=== PATIENT | male | born 1960 | race Caucasian/White ===

== ENCOUNTER → 2019-04-17 16:02 | Outpatient (CLI) | payer OTHER, SELFPAY ==
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
== END ==
PROVIDERS: PCP Internal Medicine; Visit Provider Internal Medicine
DX: M54.2 Cervicalgia (principal); M54.6 Pain in thoracic spine; V89.2XXA Person injured in unspecified motor-vehicle accident, traffic, initial encounter
CPT/HCPCS: 72050; 72072

== ENCOUNTER → 2019-07-09 15:55 | Outpatient (CLI) | payer OTHER, SELFPAY ==
--- NOTE | 2019-07-09 16:07 | ECG_ITS ---
APPROVED REPORT Exam: Resting ECG HR:65 bpm ECG Measurements Heart Rate 65 AXES VT 190 P 0 QRSd 102 QRS 12 QT 394 T 2 QTc 409 <Conclusion> Normal sinus rhythm Normal ECG Electronically signed by : Sherwin Crews, 07/09/2019 16:29:08
== END ==
PROVIDERS: PCP Internal Medicine; Visit Provider Internal Medicine
DX: Z01.818 Encounter for other preprocedural examination (principal); I10 Essential (primary) hypertension
CPT/HCPCS: 93005

== ENCOUNTER 2019-11-05 09:30 | Outpatient (RCR) | payer OTHER, SELFPAY | END 2019-11-05 09:35 | disposition home or self-care (01) | LOC: PT 09:30 | PROVIDERS: Visit Provider Orthopaedic Surgery | DX: M54.12 Radiculopathy, cervical region (principal); M48.02 Spinal stenosis, cervical region | CPT/HCPCS: 97010; 97014; 97035; 97110; 97140; 97163; 97164; G0283 ==

== ENCOUNTER → 2021-02-27 12:57 | Outpatient (CLI) | payer BC, SELFPAY ==
[2021-02-27 14:22] LABS: Basophils # 0.1 K/mm3 (0-0.2); Eosinophils # 0.3 K/mm3 (0.0-0.4); Eosinophils % 5.5 % (0.1-12.0); Hematocrit 42.3 % (42.0-52.0); Hemoglobin 13.6 g/dL (14.1-18.0); Lymphocytes # 1.6 K/mm3 (0.7-4.5); Lymphocytes % 26.5 % (10-50); Mean Corpuscular Hemoglobin 28.2 pg (27.0-31.2); Mean Corpuscular Volume 88.1 fl (80-94); Mean Platelet Volume 7.7 fl (7.4-10.4); Monocytes # 0.7 K/mm3 (0.1-1.0); Monocytes % 11.7 % (1.7-9.3); Neutrophils # 3.4 K/mm3 (1.8-7.8); Neutrophils % 55.2 % (37.0-80.0); Platelet Count 315 K/mm3 (142-424); Red Cell Distribution Width 13.3 % (11.5-17.5); White Blood Count 6.2 K/mm3 (4.8-10.8)
[2021-02-27 14:23] LABS: Hemoglobin A1C 7.9 % (4.0-6.0)
[2021-02-27 17:12] LABS: Alanine Aminotransferase 33 U/L (12-78); Albumin Level 4.1 g/dl (3.5-5.0); Albumin/Globulin Ratio 1.6 (1.1-1.8); Alkaline Phosphatase 51 U/L (38-126); Anion Gap 13.1 mEq/L (5-15); Aspartate Amino Transferase 36 U/L (17-59); Bilirubin,Total 0.6 mg/dl (0.2-1.3); Blood Urea Nitrogen 19 mg/dl (9-20); Calcium 9.7 mg/dl (8.4-10.2); Carbon Dioxide 23 mmol/L (22.0-30.0); Chloride 106 mmol/L (98-107); Chol/HDL Ratio 4.2 (1-3.5); Cholesterol 130 mg/dl (140-200); Estimated Glomerular Filt Rate 86 ml/min (>60); GFR (African American) 104 ML/MIN (>60); Globulin 2.6 g/dL (1.3-3.2); Glucose 173 mg/dl (74-100); HDL Cholesterol 31 mg/dl (40-60); Potassium 5.1 mmoL/L (3.5-5.1); Sodium 137 mmol/L (136-145); Total Protein,Serum 6.7 g/dl (6.3-8.2); Triglycerides 249 mg/dl (30-150); VLDL Cholesterol 50 mg/dL (0-40)
[2021-02-27 17:23] LABS: Direct LDL Cholesterol 30.07 mg/dL (100-129)
[2021-02-27 17:42] LABS: Prostate Specific Ag, Diagnost 0.997 ng/ml (0.0-4.0)
== END ==
PROVIDERS: Visit Provider Internal Medicine
DX: E11.9 Type 2 diabetes mellitus without complications (principal); I10 Essential (primary) hypertension; K76.0 Fatty (change of) liver, not elsewhere classified; E78.5 Hyperlipidemia, unspecified; M15.0 Primary generalized (osteo)arthritis; N40.1 Benign prostatic hyperplasia with lower urinary tract symptoms
CPT/HCPCS: 36415; 80053; 80061; 83036; 84153; 85025

== ENCOUNTER → 2021-07-01 06:14 | Outpatient (CLI) | payer BC, SELFPAY ==
--- NOTE | 2021-07-01 06:16 | CA_ITS ---
APPROVED REPORT Exam: Exercise Treadmill Technologist: Shira Israel Ht: 5 ft 9 in Wt: 281 lbs BSA: 2.39 m2 HR: 60 bpm BP: 124/84 mmHg Indications: Chest pain Medical History Medications: Aspirin,,,,, Metformin,,,,, Vitamin C,,,,, Vitamin D3,,,,, Losartan,,,,, TAMSULOSIN,,,,, Janumet,,,,, Celecoxib,,,,, Levocetirizine,,,,, PEPcid,,,,, LovaZA,,,,, Metamucil,,,,, Stress Test Details Test: Brandan HR Resting HR: 64 bpm Max Heart Rate (APMHR): 159 bpm Max HR Achieved: 127 bpm Target HR (85% APMHR): 135 bpm % of APMHR: 79 Recovery HR: 68 bpm BP Resting BP: 124.0/84.0 mmHg Max BP: 158.0/80.0 mmHg Recovery BP: 114.0/75.0 mmHg ECG Resting ECG: Normal sinus rhythm, rightward axis, ST-T abnormalities in leads III, aVF Clinical Exercise duration: 07:30 min Highest Stage Achieved: Exercise capacity: 10.1 METs Stress ECG Conclusion Patient exercised 7:30 on Brandan Protocol, stopping due to shortness of air. Symptoms: No chest pain. Arrhythmias/Ectopy: None ST-T Changes: Exaggeration of baseline ST-T abnormalities in leads III and aVF. Approximately 1mm of horizontal ST depression in lead II. Conclusion: Non-diagnostic EKG stress. < 85% of PM heart rate achieved. Myoview images reported separately. Test Summary . Standing . . . . . . . Myoview Injected . Stop exercise at 07:30 . . . . . . Electronically signed by : Marcin Clements MD 07/02/2021 11:20:53
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
--- NOTE | 2021-07-01 06:16 | CA_ITS ---
APPROVED REPORT EXAM: Comprehensive 2D, Doppler, and color-flow Echocardiogram Product Scientist: Vianney Hernandez, RT(R) Ht: 5 ft 9 in Wt: 281lbs BSA: 2.39 BP: 132/84 mmHg Indications: CP, HTN, DM, SOB, GERD, recent COVID Echo Enhancing Agent Indication: Endocardial border delineation Agent(s) / Amount(s) Used: Definity 2 cc 2D Dimensions LVOT 2.20 cm (M/F) 1.5-2.5 M-Mode Dimensions RVDd 2.49 cm (0.9-2.6) LA Diam 3.49 cm (1.9-4.0) LVDd 5.56 cm (3.5-5.7) Ao Diam 3.32 cm (2.0-3.7) LVDs 4.00 cm (3.5-5.7) IVSd 0.80 cm (0.6-1.1) PWd 1.05 cm (0.6-1.1) EF (Teich) 53.70% FS 28.10% EDV (Teich) 151.20 mL ESV (Teich) 70.00 mL LV Diastology E Decel Time 257.00 (160-240 msec) E/A Ratio 0.8 MED E' 5.70 (< 7 cm/sec) E'/MED E' Ratio 12.88 (>14) LAT E' 7.10 (<10 cm/sec) E/LAT E' Ratio 10.34 (>14) Mitral Valve MV E Max Ramiro. 73.00 (40-130 cm/s) MV A Velocity 89.00 (40-130 cm/s) E/A Ratio 0.83 MV Decel. Time 257.00 (160-240 ms) MV PHT 75.00 ms Left Ventricle Left atrium is mildly enlarged, left ventricle is normal size, mild concentric left ventricular hypertrophy, visually estimated ejection fraction 55% with no regional wall motion abnormality, grade 1 diastolic dysfunction seen without tissue Doppler evidence of raise left atrial pressure, Definity contrast was utilized to delineate the endocardial surfaces, there is no left ventricular thrombus seen. Right Ventricle Right atrium and right ventricle are normal size and contractility. Aortic Valve Aortic valve is minimally thickened and fibrosed, there is no aortic stenosis or aortic insufficiency. Mitral Valve Mitral valve grossly normal, there is trace mitral regurgitation. Tricuspid Valve Tricuspid grossly normal, there is trace tricuspid regurgitation, tricuspid regurgitation jet velocity is inadequate for calculation of the right ventricular systolic pressure. Pulmonic Valve Pulmonic valve is poorly visualized. Great Vessels Aortic root is normal size. Pericardium No significant pericardial effusion noted. Conclusion 1. Mildly enlarged left atrium, normal left ventricular size, mild concentric left ventricular hypertrophy, visually estimated ejection fraction 55% with no regional wall motion abnormality, grade 1 diastolic dysfunction seen without tissue Doppler evidence of raise left atrial pressure. 2. Trace mitral and tricuspid regurgitation. 3. No significant pericardial effusion noted. Electronically signed by : Marcin Clements MD 07/02/2021 15:25:26
== END ==
PROVIDERS: PCP Internal Medicine; Visit Provider Nurse Practitioner Family
DX: R07.89 Other chest pain (principal); R06.00 Dyspnea, unspecified; R94.31 Abnormal electrocardiogram [ECG] [EKG]; E13.69 Other specified diabetes mellitus with other specified complication; I10 Essential (primary) hypertension; K21.9 Gastro-esophageal reflux disease without esophagitis; Z79.84 Long term (current) use of oral hypoglycemic drugs
CPT/HCPCS: 78452; 93017; 93306; A9502; Q9957

== ENCOUNTER → 2021-07-07 11:32 | Outpatient (CLI) | payer BC, SELFPAY ==
--- NOTE | 2021-07-07 11:36 | XR_ITS ---
PROCEDURE: XR CHEST 2V CLINICAL HISTORY: dyspnea COMPARISON: No exams were available for comparison FINDINGS: The cardiomediastinal silhouette and pulmonary vascularity are within normal limits. The lungs are clear without infiltrates, suspicious nodules, or pleural effusions. Calcified granuloma right midlung, lingula, and left lower lobe. Degenerative changes thoracic spine. Prior anterior cervical disc fusion. IMPRESSION: No acute findings. Dictated by: Ministerio Saleh MD 07/07/2021 11:47 Ministerio Saleh MD in [place] 07/07/2021 11:47
== END ==
PROVIDERS: PCP Internal Medicine; Visit Provider Physician Assistant
DX: R07.89 Other chest pain (principal); R06.00 Dyspnea, unspecified
CPT/HCPCS: 71046

== ENCOUNTER → 2021-07-15 13:56 | Outpatient (CLI) | payer BC, SELFPAY ==
[2021-07-15 16:01] LABS: Blood Urea Nitrogen 20 mg/dl (9-20); Estimated Glomerular Filt Rate 115 ml/min (>60); GFR (African American) 139 ML/MIN (>60)
== END ==
PROVIDERS: Visit Provider Internal Medicine
DX: Z01.812 Encounter for preprocedural laboratory examination (principal)
CPT/HCPCS: 36415; 82565; 84520

== ENCOUNTER → 2021-07-16 12:53 | Outpatient (CLI) | payer BC, SELFPAY ==
--- NOTE | 2021-07-16 12:54 | CT_ITS ---
PROCEDURE: CT HIGH RESOLUTION CHEST CLINICAL HISTORY: E11.69 - Type 2 diabetes mellitus with other specified co... Pulmonary scarring, Covid19, dyspnea COMPARISON: CR XR CHEST 2V from 07/07/2021 TECHNIQUE: Axial images obtained with sagittal and coronal reformats. All CT scans at the facility use one or more dose reduction, viz: automated exposure control, ma/kV adjustment per patient size (including targeted exams where dose is matched to indication, i.e. head), or iterative reconstruction technique. FINDINGS: There is bilateral gynecomastia. A subcutaneous nodules present along the medial aspect of the right breast at 10 mm and may be due to a sebaceous cyst. Correlation with physical exam suggested. No mediastinal or hilar mass or adenopathy. There is evidence of old granulomatous disease with a calcified granuloma in the right upper lobe posteriorly. There is a 3-4 mm noncalcified nodule in the right middle lobe region nonspecific too small to categorize the flat like in nature benign-appearing a. Stability may be confirmed with annual follow-up. No suspicious nodules, consolidation, or effusions evident. No pulmonary fibrosis or suspected areas of scarring. High-resolution images are obtained showing no evidence pulmonary fibrosis. The interstitium has an unremarkable appearance. No ground-glass opacities Degenerative changes are present in the thoracic spine. Stone is present in the gallbladder at 10 mm. IMPRESSION: 1. No acute finding. No evidence of pulmonary fibrosis or ground-glass opacities or interstitial thickening. 2. Old granulomatous disease. 4 mm noncalcified nodule right middle lobe nonspecific. Annual follow-up may confirm stability. 3. Cholelithiasis 4. Gynecomastia. 10 mm subcutaneous nodule right breast medially possibly due to a sebaceous cyst Dictated by: Ministerio Saleh MD 07/20/2021 13:20 Ministerio Saleh MD in [place] 07/20/2021 13:20
== END ==
PROVIDERS: PCP Internal Medicine; Visit Provider Physician Assistant
DX: R06.00 Dyspnea, unspecified (principal); R07.89 Other chest pain; R94.31 Abnormal electrocardiogram [ECG] [EKG]; E11.69 Type 2 diabetes mellitus with other specified complication; I10 Essential (primary) hypertension; K21.9 Gastro-esophageal reflux disease without esophagitis; Z86.16 Personal history of COVID-19; Z79.84 Long term (current) use of oral hypoglycemic drugs
CPT/HCPCS: 71250

== ENCOUNTER → 2021-09-17 10:22 | Outpatient (CLI) | payer BC, SELFPAY ==
[2021-09-17 10:46] LABS: Basophils # 0.1 K/mm3 (0-0.2); Basophils % 1.4 % (0.1-2.0); Eosinophils # 0.4 K/mm3 (0.0-0.4); Eosinophils % 6.7 % (0.1-12.0); Hematocrit 44.7 % (42.0-52.0); Hemoglobin 14.7 g/dL (14.1-18.0); Lymphocytes # 1.5 K/mm3 (0.7-4.5); Mean Corpuscular HGB Conc 32.9 g/dL (31.8-35.4); Mean Corpuscular Hemoglobin 29.4 pg (27.0-31.2); Mean Corpuscular Volume 89.2 fl (80-94); Monocytes # 0.4 K/mm3 (0.1-1.0); Monocytes % 7.2 % (1.7-9.3); Neutrophils # 3.3 K/mm3 (1.8-7.8); Neutrophils % 57.7 % (37.0-80.0); Platelet Count 302 K/mm3 (142-424); Red Blood Count 5.01 M/mm3 (4.60-6.20); Red Cell Distribution Width 13.4 % (11.5-17.5); White Blood Count 5.7 K/mm3 (4.8-10.8)
[2021-09-17 11:29] LABS: Chloride 104 mmol/L (98-107); Potassium 4.6 mmoL/L (3.5-5.1); Sodium 140 mmol/L (136-145)
[2021-09-17 11:31] LABS: Alanine Aminotransferase 33 U/L (12-78); Anion Gap 10.6 mEq/L (5-15); Aspartate Amino Transferase 27 U/L (17-59); Blood Urea Nitrogen 18 mg/dl (9-20); Carbon Dioxide 30 mmol/L (22.0-30.0); Estimated Glomerular Filt Rate 98 ml/min (>60); GFR (African American) 119 ML/MIN (>60)
[2021-09-17 11:32] LABS: Albumin Level 4.1 g/dl (3.5-5.0); Albumin/Globulin Ratio 1.7 (1.1-1.8); Alkaline Phosphatase 52 U/L (38-126); Bilirubin,Total 0.3 mg/dl (0.2-1.3); Calcium 9.3 mg/dl (8.4-10.2); Chol/HDL Ratio 2.8 (1-3.5); Cholesterol 110 mg/dl (140-200); Globulin 2.4 g/dL (1.3-3.2); Glucose 162 mg/dl (74-100); HDL Cholesterol 40 mg/dl (40-60); Total Protein,Serum 6.5 g/dl (6.3-8.2); Triglycerides 127 mg/dl (30-150); VLDL Cholesterol 25 mg/dL (0-40)
[2021-09-17 12:11] LABS: Direct LDL Cholesterol < 30.00 mg/dL (100-129); Microalbumin < 6.000 mg/L (0-16.7)
== END ==
PROVIDERS: Visit Provider Internal Medicine
DX: E11.9 Type 2 diabetes mellitus without complications (principal); I10 Essential (primary) hypertension; E78.5 Hyperlipidemia, unspecified; K76.0 Fatty (change of) liver, not elsewhere classified; M15.0 Primary generalized (osteo)arthritis; N40.1 Benign prostatic hyperplasia with lower urinary tract symptoms; Z79.84 Long term (current) use of oral hypoglycemic drugs
CPT/HCPCS: 36415; 80053; 80061; 82043; 85025

== ENCOUNTER → 2021-10-05 11:32 | Outpatient (CLI) | payer BC, SELFPAY ==
[2021-10-05 13:36] LABS: Prostate Specific Ag, Diagnost 0.904 ng/ml (0.0-4.0)
[2021-10-05 13:38] LABS: Hemoglobin A1C 7.4 % (4.0-6.0)
== END ==
PROVIDERS: Internal Medicine; Visit Provider Surgery
DX: E11.9 Type 2 diabetes mellitus without complications (principal); I10 Essential (primary) hypertension; E78.5 Hyperlipidemia, unspecified; K76.0 Fatty (change of) liver, not elsewhere classified; M15.0 Primary generalized (osteo)arthritis; N40.1 Benign prostatic hyperplasia with lower urinary tract symptoms; Z79.84 Long term (current) use of oral hypoglycemic drugs
CPT/HCPCS: 36415; 83036; 84153; C9803; U0003; U0005

== ENCOUNTER 2021-10-07 06:40 | Day surgery (SDC) | payer BC, SELFPAY ==
[2021-10-05 10:28] VITALS: BMI 41.3
[2021-10-07 06:56] VITALS: BP 130/80; PULSE 68; RESP 18; TEMP 36.9; O2SAT 96
[2021-10-07 07:25] VITALS: O2SAT 96
--- NOTE | 2021-10-07 07:52 | P.PCN_ITS ---
- Procedure: Date: 10/07/21 Patient Date of :: 1960 Procedure Performed:: Total colonoscopy to terminal ileum with polypectomy using biopsy forceps Indications:: 61-year-old male who underwent initial screening colonoscopy [address] Ceron. Presents for screening colonoscopy. Performing Provider:: Reinaldo Steinberg MD Referring Provider:: Sherwin Crews Sedation:: MAC sedation Procedure:: Patient was taken to endoscopy procedure room. He was positioned in lateral decubitus position. Adequate intravenous sedation was achieved with anesthesia titration of propofol. Variable stiffness Olympus colonoscope was inserted via the anus and advanced to the cecum. Colonic preparation was good. There was some particulate liquid stool which was irrigated and suctioned free allowing for adequate visualization. Ileocecal valve and appendiceal orifice were identified. Colonoscope was advanced into the terminal ileum which appeared gr ossly normal. Colonoscope was withdrawn through the colon with careful surveillance. There were some sigmoid diverticuli. In the distal sigmoid colon there is a small diminutive polyp removed in a piecemeal fashion using cold biopsy forceps. Retroflexion within the rectum revealed no evidence of any pathologic internal hemorrhoids. Colonoscope was withdrawn. Findings:: Diminutive distal sigmoid polyp Sigmoid diverticulosis Recommendations:: Follow-up colonoscopy pending the pathology. Likely 5 years Complications:: None immediately apparent Estimated blood obtained (mL): 1
[2021-10-07 07:55] VITALS: BP 112/68; PULSE 68; RESP 18; TEMP 37.1; O2SAT 92
[2021-10-07 08:05] VITALS: BP 110/66; PULSE 66; RESP 18; O2SAT 95
[2021-10-07 08:15] VITALS: BP 121/76; PULSE 65; RESP 16; O2SAT 95
--- NOTE | 2021-10-07 08:15 | HMH.ANESCL ---
[facility] Anesthesia Checklist - Structural Data Admitted From: Home Planned Operative Procedure/s: colonoscopy Consent for Planned Operative Procedure(s) Verified: Yes - Airway Assessment C-Spine Mobility Assessed: Yes TMJ Mobility Assessed: Yes Dentition: Good Dentition - Neurological Assessment Level of Consciousness: Awake, Alert, Appropriate - Anesthesia Plan Anesthesia Risk discussed: Yes Anesthesia Plan: Verified ASA Class: II Anesthesia Type: MAC [facility] History I have reviewed the patient's past medical history: Yes Medical History: Reports:: Diabetes Mellitus Type 2, Hypertension Denies:: Cancer, Diabetes Mellitus Type 1, Internal Pacemaker, MRSA, Seizures *Have you ever received a pneumonia vaccine?: No *Have you received a flu vaccine this season?: Yes Other Medical History: Reports: Arthritis Anesthesia experience/problems:: none Laterality Cases: Left: Arthroscopy Shoulder Other Surgeries: Yes: Hernia Repair. No: Pacemaker Amputation: No Fractures: Yes - *Social History Last grade of school completed: High school graduate Smoking Status: Former smoker #Yrs smoked (if former smoker): 15 Smoking End Date: 25 YRS Alcohol Intake: current Alcohol Intake Frequency:: a few times a week Substance Use Type: denies use *Occupational Status:: retired Housing: house Household Members: spouse *Travel in the last 8 weeks: None Family Hx:: Cancer, Diabetes, Heart Attack, Hyperlipidemia, Hypertension
[2021-10-07 08:25] VITALS: BP 136/82; PULSE 68; RESP 16; O2SAT 98
[2022-07-29 10:55] LABS: POC Glucose,Bedside 160 (70-110)
== END 2021-10-07 08:27 | disposition home or self-care (01) ==
LOC: OUTP 06:42
PROVIDERS: PCP Internal Medicine; Visit Provider Surgery
PROC: 0DJD8ZZ Inspection of Lower Intestinal Tract, Via Natural or Artificial Opening Endoscopic (ICD-10-PCS; CPT 45380; principal; 2021-10-07 07:30)
DX: Z12.11 Encounter for screening for malignant neoplasm of colon (principal); K63.5 Polyp of colon; K57.32 Diverticulitis of large intestine without perforation or abscess without bleeding; E11.9 Type 2 diabetes mellitus without complications; I10 Essential (primary) hypertension; Z83.3 Family history of diabetes mellitus; Z82.49 Family history of ischemic heart disease and other diseases of the circulatory system; Z80.9 Family history of malignant neoplasm, unspecified; Z79.82 Long term (current) use of aspirin; Z79.899 Other long term (current) drug therapy
CPT/HCPCS: 45380; 82962

== ENCOUNTER → 2022-03-09 12:47 | Outpatient (CLI) | payer MEDICARE, BC, SELFPAY ==
[2022-03-09 13:44] LABS: Hemoglobin A1C 8.4 % (4.0-6.0)
[2022-03-09 13:50] LABS: Alanine Aminotransferase 37 U/L (12-78); Albumin Level 3.7 g/dl (3.5-5.0); Albumin/Globulin Ratio 1.5 (1.1-1.8); Alkaline Phosphatase 65 U/L (38-126); Anion Gap 12.4 mEq/L (5-15); Aspartate Amino Transferase 26 U/L (17-59); Bilirubin,Total 0.3 mg/dl (0.2-1.3); Blood Urea Nitrogen 17 mg/dl (9-20); Calcium 9.2 mg/dl (8.4-10.2); Carbon Dioxide 26 mmol/L (22.0-30.0); Chloride 103 mmol/L (98-107); Chol/HDL Ratio 3.8 (1-3.5); Cholesterol 124 mg/dl (140-200); Estimated Glomerular Filt Rate 98 ml/min (>60); GFR (African American) 119 ML/MIN (>60); Globulin 2.4 g/dL (1.3-3.2); Glucose 205 mg/dl (74-100); HDL Cholesterol 33 mg/dl (40-60); Potassium 4.4 mmoL/L (3.5-5.1); Sodium 137 mmol/L (136-145); Total Protein,Serum 6.1 g/dl (6.3-8.2); Triglycerides 197 mg/dl (30-150); VLDL Cholesterol 39 mg/dL (0-40)
[2022-03-09 14:01] LABS: Direct LDL Cholesterol < 30.00 mg/dL (100-129)
[2022-03-09 14:20] LABS: Prostate Specific Ag Screen 0.8 ng/ml (0.0-4.0)
== END ==
PROVIDERS: PCP Internal Medicine; Visit Provider Internal Medicine
DX: E11.9 Type 2 diabetes mellitus without complications (principal); E78.5 Hyperlipidemia, unspecified; I10 Essential (primary) hypertension; Z12.5 Encounter for screening for malignant neoplasm of prostate; Z79.84 Long term (current) use of oral hypoglycemic drugs
CPT/HCPCS: 80053; 80061; 83036; G0103

== ENCOUNTER → 2022-09-13 13:53 | Outpatient (CLI) | payer MEDICARE, BC, SELFPAY ==
[2022-09-13 16:13] LABS: Basophils # 0.1 K/mm3 (0-0.2); Basophils % 1.4 % (0.1-2.0); Eosinophils # 0.3 K/mm3 (0.0-0.4); Eosinophils % 5.8 % (0.1-12.0); Hemoglobin 12.8 g/dL (14.1-18.0); Lymphocytes # 1.5 K/mm3 (0.7-4.5); Lymphocytes % 26.3 % (10-50); Mean Corpuscular HGB Conc 32.1 g/dL (31.8-35.4); Mean Corpuscular Hemoglobin 29.1 pg (27.0-31.2); Mean Corpuscular Volume 90.9 fl (80-94); Mean Platelet Volume 8.9 fl (7.4-10.4); Monocytes # 0.5 K/mm3 (0.1-1.0); Monocytes % 8.7 % (1.7-9.3); Neutrophils # 3.2 K/mm3 (1.8-7.8); Neutrophils % 57.8 % (37.0-80.0); Platelet Count 356 K/mm3 (142-424); Red Blood Count 4.41 M/mm3 (4.60-6.20); Red Cell Distribution Width 14.1 % (11.5-17.5); White Blood Count 5.5 K/mm3 (4.8-10.8)
[2022-09-13 16:23] LABS: Alanine Aminotransferase 28 U/L (12-78); Albumin Level 3.8 g/dl (3.5-5.0); Albumin/Globulin Ratio 1.6 (1.1-1.8); Alkaline Phosphatase 78 U/L (38-126); Anion Gap 13.7 mEq/L (5-15); Aspartate Amino Transferase 24 U/L (17-59); Bilirubin,Total 0.3 mg/dl (0.2-1.3); Blood Urea Nitrogen 22 mg/dl (9-20); Calcium 9.3 mg/dl (8.4-10.2); Carbon Dioxide 27 mmol/L (22.0-30.0); Chloride 103 mmol/L (98-107); Chol/HDL Ratio 2.9 (1-3.5); Cholesterol 100 mg/dl (140-200); Estimated Glomerular Filt Rate 86 ml/min (>60); GFR (African American) 103 ML/MIN (>60); Globulin 2.4 g/dL (1.3-3.2); Glucose 128 mg/dl (74-100); HDL Cholesterol 34 mg/dl (40-60); Potassium 4.7 mmoL/L (3.5-5.1); Sodium 139 mmol/L (136-145); Total Protein,Serum 6.2 g/dl (6.3-8.2); Triglycerides 119 mg/dl (30-150); VLDL Cholesterol 24 mg/dL (0-40)
[2022-09-13 16:40] LABS: Creatinine,Urine Random 146 mg/dL (Not Estab.)
[2022-09-13 16:42] LABS: Direct LDL Cholesterol < 30.00 mg/dL (100-129)
[2022-09-13 16:44] LABS: Microalbumin < 6.000 mg/L (0-16.7)
[2022-09-13 17:00] LABS: Hemoglobin A1C 6.5 % (4.0-6.0)
[2022-09-15 11:14] LABS: Iron 53 ug/dL (49-181)
[2022-09-15 11:23] LABS: Total Iron Binding Capacity 354 ug/dL (261-462)
== END ==
PROVIDERS: PCP Internal Medicine; Visit Provider Internal Medicine
DX: E11.9 Type 2 diabetes mellitus without complications (principal); D64.9 Anemia, unspecified; I10 Essential (primary) hypertension; E78.5 Hyperlipidemia, unspecified; K76.0 Fatty (change of) liver, not elsewhere classified; G47.33 Obstructive sleep apnea (adult) (pediatric); Z79.84 Long term (current) use of oral hypoglycemic drugs
CPT/HCPCS: 80053; 80061; 82043; 82570; 83036; 83540; 83550; 85025

== ENCOUNTER 2023-11-01 13:46 | Outpatient (CLI) | payer MEDICARE, BC, SELFPAY ==
[2023-11-01 15:24] LABS: Alanine Aminotransferase 22 U/L (12-78); Alkaline Phosphatase 67 U/L (38-126); Aspartate Amino Transferase 23 U/L (17-59); Bilirubin,Total 0.4 mg/dl (0.2-1.3); Blood Urea Nitrogen 19 mg/dl (9-20); Calcium 8.2 mg/dl (8.4-10.2); Carbon Dioxide 25 mmol/L (22.0-30.0); Chloride 107 mmol/L (98-107); Chol/HDL Ratio 3.2 (1-3.5); Cholesterol 108 mg/dl (140-200); Estimated Glomerular Filt Rate 85 ml/min (>60); GFR (African American) 103 ML/MIN (>60); Glucose 138 mg/dl (74-100); HDL Cholesterol 34 mg/dl (40-60); Triglycerides 85 mg/dl (30-150); VLDL Cholesterol 17 mg/dL (0-40)
[2023-11-01 15:35] LABS: Direct LDL Cholesterol 46.63 mg/dL (100-129)
[2023-11-01 15:53] LABS: Creatinine,Urine Random 185 mg/dL (Not Estab.)
[2023-11-01 16:22] LABS: Albumin Level 3.4 g/dl (3.5-5.0); Albumin/Globulin Ratio 1.4 (1.1-1.8); Anion Gap 6.7 mEq/L (5-15); Globulin 2.5 g/dL (1.3-3.2); Potassium 4.7 mmoL/L (3.5-5.1); Sodium 134 mmol/L (136-145); Total Protein,Serum 5.9 g/dl (6.3-8.2)
[2023-11-01 16:47] LABS: Hemoglobin A1C 7.1 % (4.0-6.0)
[2023-11-01 18:10] LABS: Microalbumin/Creatinine Ratio 4.4
== END 2023-11-01 23:59 ==
LOC: LAB.DROPOF 13:47
PROVIDERS: PCP Internal Medicine; Visit Provider Internal Medicine
DX: E11.9 Type 2 diabetes mellitus without complications (principal); Z12.5 Encounter for screening for malignant neoplasm of prostate; E78.5 Hyperlipidemia, unspecified; I10 Essential (primary) hypertension; K76.0 Fatty (change of) liver, not elsewhere classified; M15.0 Primary generalized (osteo)arthritis; E66.01 Morbid (severe) obesity due to excess calories; Z68.41 Body mass index [BMI] 40.0-44.9, adult; Z79.84 Long term (current) use of oral hypoglycemic drugs; Z87.891 Personal history of nicotine dependence
CPT/HCPCS: 80053; 80061; 82043; 82570; 83036; G0103

== ENCOUNTER 2024-03-09 15:12 | Outpatient (CLI) | payer MEDICARE, BC, SELFPAY ==
--- NOTE | 2024-03-09 15:19 | XR_ITS ---
FINAL REPORT CLINICAL HISTORY: Cough and shortness of breath COMPARISON: None FINDINGS: Two views of the chest were obtained. The heart size and pulmonary vascularity are within normal limits. The mediastinum is normal. No acute pulmonary abnormality is identified. There is no pneumothorax. Postoperative change is noted in the lower cervical spine. IMPRESSION: No active cardiopulmonary disease. Reviewed, Interpreted and Dictated by Reinaldo Peters III, MD Transcribed by Paulette Gilmore Authenticated and [facility]
== END 2024-03-09 23:59 | disposition home or self-care (01) ==
LOC: RAD 15:16
PROVIDERS: PCP Internal Medicine; Visit Provider Internal Medicine
DX: R06.02 Shortness of breath (principal); R05.9 Cough, unspecified
CPT/HCPCS: 71046

== ENCOUNTER 2024-05-29 18:08 | Outpatient (CLI) | payer MEDICARE, BC, SELFPAY ==
[2024-05-29 18:59] LABS: Basophils # 0.1 K/mm3 (0-0.2); Basophils % 1.4 % (0.1-2.0); Eosinophils # 0.5 K/mm3 (0.0-0.4); Eosinophils % 9.6 % (0.1-12.0); Hematocrit 40.9 % (42.0-52.0); Hemoglobin 12.7 g/dL (14.1-18.0); Lymphocytes # 1.5 K/mm3 (0.7-4.5); Mean Corpuscular Hemoglobin 25.5 pg (27.0-31.2); Mean Corpuscular Volume 82.4 fl (80-94); Mean Platelet Volume 8.4 fl (7.4-10.4); Monocytes # 0.4 K/mm3 (0.1-1.0); Monocytes % 8.2 % (1.7-9.3); Neutrophils # 2.6 K/mm3 (1.8-7.8); Neutrophils % 51.9 % (37.0-80.0); Platelet Count 313 K/mm3 (142-424); Red Blood Count 4.97 M/mm3 (4.60-6.20)
[2024-05-29 19:22] LABS: Alanine Aminotransferase 23 U/L (12-78); Albumin Level 3.6 g/dl (3.5-5.0); Albumin/Globulin Ratio 1.2 (1.1-1.8); Alkaline Phosphatase 71 U/L (38-126); Anion Gap 10.6 mEq/L (5-15); Aspartate Amino Transferase 22 U/L (17-59); Bilirubin,Total 0.3 mg/dl (0.2-1.3); Blood Urea Nitrogen 17 mg/dl (9-20); Calcium 9.3 mg/dl (8.4-10.2); Carbon Dioxide 25 mmol/L (22.0-30.0); Chloride 107 mmol/L (98-107); Chol/HDL Ratio 2.5 (1-3.5); Cholesterol 104 mg/dl (140-200); Estimated Glomerular Filt Rate 97 ml/min (>60); GFR (African American) 118 ML/MIN (>60); Globulin 3.1 g/dL (1.3-3.2); Glucose 107 mg/dl (74-100); HDL Cholesterol 41 mg/dl (40-60); Potassium 4.6 mmoL/L (3.5-5.1); Sodium 138 mmol/L (136-145); Total Protein,Serum 6.7 g/dl (6.3-8.2); Triglycerides 140 mg/dl (30-150); VLDL Cholesterol 28 mg/dL (0-40)
[2024-05-29 19:40] LABS: Direct LDL Cholesterol < 30.00 mg/dL (100-129)
[2024-05-29 21:16] LABS: Hemoglobin A1C 6.9 % (4.0-6.0)
[2024-05-30 15:16] LABS: Iron 41 ug/dL (49-181)
[2024-05-30 15:26] LABS: Total Iron Binding Capacity 394 ug/dL (261-462)
[2024-05-30 15:40] LABS: Vitamin B12 610 pg/mL (239-931)
== END 2024-05-29 23:59 | disposition home or self-care (01) ==
LOC: LAB.DROPOF 18:08
PROVIDERS: PCP Internal Medicine; Visit Provider Internal Medicine
DX: I10 Essential (primary) hypertension (principal); E11.69 Type 2 diabetes mellitus with other specified complication; E11.9 Type 2 diabetes mellitus without complications; E78.5 Hyperlipidemia, unspecified; D64.9 Anemia, unspecified; Z79.84 Long term (current) use of oral hypoglycemic drugs; Z87.891 Personal history of nicotine dependence
CPT/HCPCS: 80053; 80061; 82607; 83036; 83540; 83550; 85025

== ENCOUNTER 2024-06-12 19:01 | Outpatient (CLI) | payer MEDICARE, BC, SELFPAY ==
[2024-06-12 19:29] LABS: Occult Blood,Stool Negative (Negative)
== END 2024-06-12 23:59 | disposition home or self-care (01) ==
LOC: LAB.DROPOF 19:03
PROVIDERS: PCP Internal Medicine; Visit Provider Internal Medicine
DX: D50.9 Iron deficiency anemia, unspecified (principal)
CPT/HCPCS: 82272; G0328

== ENCOUNTER 2024-11-27 08:59 | Outpatient (CLI) | payer MEDICARE, BC, SELFPAY ==
[2024-11-27 16:26] LABS: Alanine Aminotransferase 25 U/L (12-78); Albumin Level 3.9 g/dl (3.5-5.0); Albumin/Globulin Ratio 1.2 (1.1-1.8); Alkaline Phosphatase 71 U/L (38-126); Anion Gap 13.7 mEq/L (5-15); Aspartate Amino Transferase 24 U/L (17-59); Bilirubin,Total 0.4 mg/dl (0.2-1.3); Blood Urea Nitrogen 19 mg/dl (9-20); Calcium 9.2 mg/dl (8.4-10.2); Carbon Dioxide 26 mmol/L (22.0-30.0); Chloride 103 mmol/L (98-107); Chol/HDL Ratio 3.1 (1-3.5); Cholesterol 117 mg/dl (140-200); Estimated Glomerular Filt Rate 85 ml/min (>60); GFR (African American) 103 ML/MIN (>60); Globulin 3.2 g/dL (1.3-3.2); Glucose 113 mg/dl (74-100); HDL Cholesterol 38 mg/dl (40-60); Potassium 4.7 mmoL/L (3.5-5.1); Sodium 138 mmol/L (136-145); Total Protein,Serum 7.1 g/dl (6.3-8.2); Triglycerides 134 mg/dl (30-150); VLDL Cholesterol 27 mg/dL (0-40)
[2024-11-27 16:35] LABS: Creatinine,Urine Random 97 mg/dL (Not Estab.); Hemoglobin A1C 6.6 % (4.0-6.0); Microalbumin < 6.000 mg/L (0-16.7)
[2024-11-27 16:37] LABS: Direct LDL Cholesterol 34.19 mg/dL (100-129)
[2024-11-27 16:58] LABS: Prostate Specific Ag Screen 0.9 ng/ml (0.0-4.0)
[2024-11-27 18:18] LABS: Iron 129 ug/dL (49-181)
[2024-11-27 18:29] LABS: Total Iron Binding Capacity 331 ug/dL (261-462)
== END 2024-11-27 23:59 | disposition home or self-care (01) ==
LOC: LAB.DROPOF 11-28 09:00
PROVIDERS: PCP Internal Medicine; Visit Provider Internal Medicine
DX: Z12.5 Encounter for screening for malignant neoplasm of prostate (principal); E11.9 Type 2 diabetes mellitus without complications; D50.9 Iron deficiency anemia, unspecified; Z86.0100 Personal history of colon polyps, unspecified; I10 Essential (primary) hypertension; E78.5 Hyperlipidemia, unspecified
CPT/HCPCS: 80053; 80061; 82043; 82570; 83036; 83540; 83550; G0103

== ENCOUNTER 2025-01-24 07:50 | Day surgery (SDC) | payer MEDICARE, BC, SELFPAY ==
[2025-01-22 16:03] VITALS: BMI 36.9
[2025-01-24 08:26] LABS: POC Glucose,Bedside 166 (70-110)
[2025-01-24 08:31] VITALS: BP 125/82; PULSE 83; RESP 16; TEMP 36.8; O2SAT 95
[2025-01-24] MEDS: LACTATED RINGERS 1000ML 1,000 ML 50 ML IV (08:42)
--- NOTE | 2025-01-24 09:23 | EXP.ANES.CKL ---
[facility] Disclaimer: The information contained in this section may have been updated after the patient was seen, as this information can be updated by other users. Medical History Left rotator cuff tear HTN (hypertension) Abnormal electrocardiography Gastroesophageal reflux disease Diabetes mellitus Dyspnea Chest pain Surgical History History of neck surgery Family History (Updated 01/24/25 @ 08:37 by Nidia August RN) Other Diabetes Heart disease Social History (Updated 01/24/25 @ 08:38 by Nidia August RN) Smoking Status: Former smoker second hand exposure: No alcohol intake: never substance use type: denies use current occupational status: retired Travel in the last 8 weeks: Inside the [place] household members: spouse housing: house caffeine: Yes Have you lived/traveled outside [place] in past 30 days?: No Contact w/someone who lives/traveled outside US past 30 days?: No Exposure to someone with infectious disease in past 14 days?: No Do you have a fever (greater than 100.4 F or 38 C)?: No Have you tested positive for COVID-19: No Exposed to someone with COVID-19 in past 14 days?: No Do you have a sore throat?: No Do you have a cough?: No Do you have any weakness?: No Are you experiencing any nausea/vomitting?: No Do you have any diarrhea?: No Are you experiencing any unusual bleeding?: No Do you have any muscle aches/pain?: No Do you have any abdominal pain?: No Are you experiencing loss of taste or smell?: No [facility] Anesthesia Checklist Patient Identification Patient Identification: Arm Band Structural Data Admitted From: Home Planned Operative Procedure/s: Colonoscopy Consent for Planned Operative Procedure(s) Verified: Yes Verified Documents: Surgical Consent and History and Physical NPO Status Verified Time NPO: 05:45 (finished prep) Additional verifications Anesthesia Reactions: No Airway Assessment Mallampati Score:: Class II C-Spine Mobility Assessed: Yes TMJ Mobility Assessed: Yes Dentition: Good Dentition Neurological Assessment Level of Consciousness: Awake, Alert and Appropriate Anesthesia Plan Anesthesia Risk discussed: Yes Anesthesia Plan: Verified ASA Class: III Anesthesia Type: MAC
[2025-01-24 09:48] VITALS: O2SAT 99
--- NOTE | 2025-01-24 09:49 | P.HP_ITS ---
History of Present Illness *Admission Date: 01/24/25 *Reason for visit:: Screening for colon cancer *History of present illness: Mr. Navas is a 64-year-old gentleman who is here for follow-up screening/surveillance colonoscopy. The examination is deemed medically necessary for screening colonoscopy. The patient has been seen, interviewed and examined prior to the procedure by both myself and the anesthesia provider. [facility] Disclaimer: The information contained in this section may have been updated after the patient was seen, as this information can be updated by other users. Medical History (Updated 01/24/25 @ 09:50 by Vinicius Hairston II, MD) Left rotator cuff tear HTN (hypertension) Abnormal electrocardiography Gastroesophageal reflux disease Diabetes mellitus Dyspnea Chest pain Surgical History History of neck surgery Family History (Updated 01/24/25 @ 08:37 by Nidia August RN) Other Diabetes Heart disease Social History (Updated 01/24/25 @ 08:38 by Nidia August RN) Smoking Status: Former smoker second hand exposure: No alcohol intake: never substance use type: denies use current occupational status: retired Travel in the last 8 weeks: Inside the [place] household members: spouse housing: house caffeine: Yes Have you lived/traveled outside US in past 30 days?: No Contact w/someone who lives/traveled outside [place] past 30 days?: No Exposure to someone with infectious disease in past 14 days?: No Do you have a fever (greater than 100.4 F or 38 C)?: No Have you tested positive for COVID-19: No Exposed to someone with COVID-19 in past 14 days?: No Do you have a sore throat?: No Do you have a cough?: No Do you have any weakness?: No Are you experiencing any nausea/vomitting?: No Do you have any diarrhea?: No Are you experiencing any unusual bleeding?: No Do you have any muscle aches/pain?: No Do you have any abdominal pain?: No Are you experiencing loss of taste or smell?: No Other Medical History Have you received the Flu Vaccine for this season: Yes Have you received the Pneumonia Vaccine: Yes Review of Systems Review of Systems Review of systems (narrative): Negative *Cardiovascular Comments: Negative *Gastrointestinal Comments: Negative *Genitourinary Comments: Negative *Musculoskeletal Comments: Negative *Neurologic Comments: Negative Meds Home Medications and Allergies Home Medications ?Medication ?Instructions ?Recorded ?Confirmed ?Type aspirin 81 mg tablet,delayed 81 mg PO DAILY heart healthy 06/16/21 01/24/25 History release (Adult Low Dose Aspirin) psyllium husk 3.4 gram/5.4 gram 1 tbsp PO DAILY bowels 06/16/21 01/24/25 History oral powder (Metamucil) vitamin B comp and C no.3 15 mg-10 1 cap PO DAILY Supplement 06/16/21 01/24/25 History mg-50 mg-5 mg-300 mg capsule (B Complex Plus Vitamin C) vitamin B complex-vitamin C-folic 400 mcg PO DAILY . 10/05/21 01/22/25 History acid 400 mcg tablet glucosamine sulfate dipotassium Cl 1 each PO DAILY supplement' 10/06/21 01/24/25 History 500 mg-chondroitin 400 mg capsule turmeric 400 mg capsule 500 mg PO DAILY Supplement 10/06/21 01/24/25 History famotidine 20 mg tablet (Pepcid) 20 mg PO BID Reflux/Acid reflux 05/29/24 01/24/25 Rx #180 tabs hydrocortisone 2.5 % topical cream 1 applic NC QID PRN hemorrhoids 05/29/24 01/24/25 Rx with perineal applicator #30 grams (Procto-Med HC) omega-3 acid ethyl esters 1 gram See Rx Instructions .Route 05/29/24 01/24/25 Rx capsule .COMPLEX #180 caps tamsulosin 0.4 mg capsule 0.4 mg PO DAILY #90 caps 05/29/24 01/24/25 Rx metformin 500 mg tablet 500 mg PO BIDWMEAL Diabetes #180 07/13/24 01/24/25 Rx tabs celecoxib 200 mg capsule See Rx Instructions .Route 10/10/24 01/24/25 Rx .COMPLEX #180 caps ezetimibe 10 mg tablet See Rx Instructions .Route 10/10/24 01/24/25 Rx .COMPLEX #90 tabs levocetirizine 5 mg tablet See Rx Instructions .Route 10/10/24 01/24/25 Rx .COMPLEX #90 tabs losartan 100 mg tablet See Rx Instructions .Route 10/10/24 01/24/25 Rx .COMPLEX #90 tabs semaglutide 14 mg tablet (Rybelsus) See Rx Instructions .Route 10/30/24 01/24/25 Rx .COMPLEX #90 tabs [id number] 140 gram-sod sulfate 9 500 ml PO .COMPLEX colonscopy #3 ea 12/03/24 12/03/24 Rx gram-NaCl 5.2gram-KCl-C oral pwdr packs (Plenvu) cholecalciferol (vitamin D3) 125 125 mcg PO DAILY Supplement 01/24/25 01/24/25 History mcg (5,000 unit) capsule cholecalciferol (vitamin D3) 50 50 mcg PO DAILY 01/24/25 01/24/25 History mcg (2,000 unit) tablet (Vitamin D3) cinnamon bark 500 mg capsule 1,000 mg PO DAILY 01/24/25 01/24/25 History (Cinnamon) magnesium 250 mg tablet 250 mg PO DAILY 01/24/25 01/24/25 History New Prescriptions to Start Prescriptions: Allergies Allergy/AdvReac Type Severity Reaction Status Date / Time Fish Containing Products Allergy Severe S-SWELLS-OR Verified 01/24/25 08:22 (From SEAFOOD (F/D)) AL/THROAT shellfish derived Allergy Severe Swelling Verified 01/24/25 08:22 of Tongue/Throat Exam Data for Last 24 hours Vital signs and Labs for Last 24 Hours: Temp Pulse Resp BP Pulse Ox O2 Del Method O2 Flow Rate 98.3 F 83 16 125/82 95 Nasal Cannula 5 01/24/25 08:31 01/24/25 08:31 01/24/25 08:31 01/24/25 08:31 01/24/25 08:31 01/24/25 09:48 01/24/25 09:48 Laboratory Results - last 24 hr 01/24/25 08:18: POC Glucose 166 H I & O for Last 24 hours: Intake & Output 01/21/25 01/22/25 01/23/25 01/24/25 23:59 23:59 23:59 23:59 Weight 250 lb *Routine HEENT Exam Head: Present normocephalic Eye: Present EOMI and PERRL ENT: Present mucous membranes moist *Routine Neck Exam Neck: Present supple *Routine Respiratory Exam Respiratory: Present CTA bilaterally *Routine Cardiovascular Exam Cardiovascular: Present RRR *Routine Abdominal Exam Abdominal: Present soft and normoactive bowel sounds; Absent tenderness *Routine Rectal Exam Rectal:: deferred *Routine Genitalia Exam Genitalia:: deferred *Routine Extremities Exam Extremities: Absent cyanosis, clubbing or edema *Routine Skin Exam Skin: Present warm; Absent rash *Routine Neurological Exam Neurological: Present alert and oriented X3 Assessment and Plan *Assessment and plan (1) Screening for colon cancer: Status: Acute Category: Medical Code(s): Z12.11 - Encounter for screening for malignant neoplasm of colon (2) History of colon polyps: Status: Chronic Category: Medical Code(s): Z86.0100 - Personal history of colon polyps, unspecified Plan A/P: 1. Screening for colon cancer/history of colon polyps is the preprocedural diagnosis. The patient will be anesthetized/sedated using MAC sedation. The patient has been seen and examined. Cardiac and lung assessment prior to the examination is stable. Proceed with planned screening colonoscopy
--- NOTE | 2025-01-24 09:51 | P.PCN_ITS ---
[facility] Procedure Note Date: 01/24/25 Time: 10:09 Procedure Note:: Colonoscopy Procedure Report: Colonoscopy with cold snare polypectomy and monopolar ablation/coagulation of internal hemorrhoids Endoscopist: Vinicius Hairston II, MD Referring physician: Sherwin Crews MD Date of Procedure: January 24, 2025 Equipment: Olympus 190 variable stiffness pediatric colonoscope Sedation: MAC sedation Indication: Mr. Navas is a 64-year-old gentleman who is here for screening/surveillance colonoscopy. He does state that his last colonoscopy was more than 10 years ago (Hernan Ceron MD) yet his records at [facility] show a colonoscopy in September 2021 (Reinaldo Steinberg MD) at which time a single hyperplastic polyp was removed. The patient does state that he also had a Cologuard within the last several years that was negative. He reports no abdominal pain, weight loss, change in bowel habits or family history of colon cancer. He does have occasional spotting of blood from internal hemorrhoids. He does have some mild chronic constipation (unchanged) and does take Metamucil daily. Procedure: Prior to the procedure, a history and physical exam was performed, and patient's medications and allergies were reviewed. The risks, benefits and alternatives of the sedation and procedure were discussed with the patient. All questions were answered and informed consent was obtained. The patient was brought to the procedure room. Patient identification and proposed procedure were verified by the physician and the nurse. The patient was placed in a left lateral decubitus position and the scope was passed under direct vision. Throughout the procedure, the patient's blood pressure, pulse, and oxygen saturations were monitored continuously. The colonoscopy was accomplished without difficulty. The patient tolerated the procedure well. Findings: On digital rectal examination there was normal rectal tone. There were no external hemorrhoids. The colonoscope was introduced through the anal canal to the rectum and advanced to the cecum. The ileocecal valve and appendiceal orifice were identified. The scope was advanced a short distance into the ileum which appeared grossly normal. The scope was then withdrawn into the colon. There was a single 7 mm polyp in the cecum removed via cold snare polypectomy. The remaining cecum, ascending and transverse colon and mucosa were grossly normal. There were scattered diverticuli throughout the descending and sigmoid colon (LEFT colon). The rectum itself was normal. Upon retroflexion within the rectum there were grade 2-3 internal hemorrhoids. The 3 columns of hemorrhoids were ablated/coagulated using monopolar ablation to destruction. The preparation was excellent throughout with Thornton Preparation Score of 9. The cecal time was 12 minutes. Impression: 1. Cecal polyp (7 mm) 2. Left-sided diverticulosis 3. Grade 2-3 internal hemorrhoids status post monopolar ablation/coagulation Plan: I will follow-up the polyp histology and recommend repeat surveillance colonoscopy again in 5 to 7 years based upon the pathology. I would encourage psyllium bulking fiber supplementation (Konsyl) on a long-term daily maintenance basis.
[2025-01-24 10:13] VITALS: BP 127/76; PULSE 79; RESP 16; TEMP 36.1; O2SAT 96
[2025-01-24 10:23] VITALS: BP 121/81; PULSE 72; RESP 16; O2SAT 97
[2025-01-24 10:33] VITALS: BP 116/78; PULSE 71; RESP 17; O2SAT 98
== END 2025-01-24 10:50 | disposition home or self-care (01) ==
PROVIDERS: PCP Internal Medicine; Visit Provider Internal Medicine Gastroenterology
PROC: 0DJD8ZZ Inspection of Lower Intestinal Tract, Via Natural or Artificial Opening Endoscopic (ICD-10-PCS; CPT 45378; principal; 2025-01-24 09:30)
DX: K63.5 Polyp of colon (principal); K57.30 Diverticulosis of large intestine without perforation or abscess without bleeding; K64.9 Unspecified hemorrhoids; Z12.11 Encounter for screening for malignant neoplasm of colon; Z86.0100 Personal history of colon polyps, unspecified; K59.00 Constipation, unspecified; E11.9 Type 2 diabetes mellitus without complications; Z79.84 Long term (current) use of oral hypoglycemic drugs
CPT/HCPCS: 45385; 45388; 82962; J7120

== ENCOUNTER 2025-05-27 10:00 | Outpatient (CLI) | payer MEDICARE, SELFPAY ==
[2025-05-27 14:09] LABS: Hemoglobin A1C 6.3 % (4.0-6.0)
[2025-05-27 14:34] LABS: Alanine Aminotransferase 23 U/L (12-78); Albumin Level 3.7 g/dl (3.5-5.0); Albumin/Globulin Ratio 1.2 (1.1-1.8); Alkaline Phosphatase 71 U/L (38-126); Anion Gap 8.6 mEq/L (5-15); Aspartate Amino Transferase 23 U/L (17-59); Bilirubin,Total 0.3 mg/dl (0.2-1.3); Blood Urea Nitrogen 18 mg/dl (9-20); Calcium 9.2 mg/dl (8.4-10.2); Carbon Dioxide 26 mmol/L (22.0-30.0); Chloride 107 mmol/L (98-107); Cholesterol 114 mg/dl (140-200); Creatinine,Serum 0.90 mg/dl (0.66-1.25); Estimated Glomerular Filt Rate 85 ml/min (>60); GFR (African American) 102 ML/MIN (>60); Globulin 3.2 g/dL (1.3-3.2); Glucose 121 mg/dl (74-100); HDL Cholesterol 32 mg/dl (40-60); Potassium 4.6 mmoL/L (3.5-5.1); Sodium 137 mmol/L (136-145); Total Protein,Serum 6.9 g/dl (6.3-8.2); Triglycerides 132 mg/dl (30-150)
--- OUTSIDE RECORDS SUMMARY | 2025-05-28 15:26 | XMS_ITS | Data Portability ---
Author Organization [facility] - Eliseo cho MD, Main Office Address [address] [facility], [facility] [address] [place] [address] Care Team Providers Care Cook Tortilla Name Role Phone LEANDRO BARRIOS Academic Coordinator Assessment No assessment recorded. Plan of Treatment Reminders Order Date Submit Date Provider Last Modified By Organization Details Last Modified Time Details Appointments None record ed. Lab None record ed. Referral None record ed. Procedures None record ed. Surgeries None record ed. Imaging None record ed. Medication Orders None record ed. Patient TargetsNo targets recorded. Patient Instructions Encounter Date Encounter Id Patient Instructions Last Modified By Organization Details Last Modified Time 04/19/2018 [id number] Neck Pain: Care Instructions Not available 04/19/2018 11:10:18 Carpal Tunnel Syndrome: Care Instructions Not available 04/19/2018 11:10:18 Reason for Referral None Reported. Results Created Date Observation Date Name Description Value Unit Range Abnormal Flag Note LastModifiedBy Organization Detail LastModifiedTime 04/19/20 18 04/19/2018 elect romyo gram + nerve condu ction study No observ ation record ed. BARCODE Not Available 2017 10:50:58 Result Notes None recorded. Procedures Surgical History Date Name Laterality Status Provider Name and Address Organization Details Recorded Time 04/19/2018 NCV/EMG completed Orlando Castellanos MD 04/19/2018 10:22:02 Imaging Results None recorded. Procedure Notes None recorded. Medical Equipment None Reported. Medications Name Sig Start Date Stop Date Status Note LastModified by Organization Details LastModified Time celecoxib 200 mg capsule active Not Available Not Available Not Available oseltamivir 75 mg capsule active Not Available Not Available N ot Available losartan 100 mg tablet active Not Available Not Available Not Available ezetimibe 10 mg tablet active Not Available Not Available Not Available omega-3 acid ethyl esters 1 gram capsule active Not Available Not Available Not Available levocetirizine 5 mg tablet active Not Available Not Available No t Available OneTouch Verio test strips active Not Available Not Available Not Available Fluarix Quad [id number] (PF) 60 mcg (15 mcg x 4)/0.5 mL IM syringe active Not Available Not Available Not Available Vitals None Recorded Social History None recorded. Functional Status None recorded. Mental Status None recorded. Family History Nothing Reported. Medical History No medical history recorded. Past Encounters Encounter ID Performer Location Encounter Start Date Encounter Closed Date Diagnosis/Indication Diagnosis SNOMED-CT Code Diagnosis ICD10 Code Diagnosis Note [id number] Eliseo Castellanos MD Main Office [address] [facility] [address] [place] [address] 04/19/2018 08:42:11 04/19/2018 09:35:51 Cervical radiculopathy 46621502 M54.12 Mild chronic left C5/6 radiculopa thy. Bilateral carpal tunnel syndrome [id number] G56.03 Mild bilateral CTS. Health Concerns Section Related Observation LastModified by Organization Detai ls LastModified Time None Recorded Concern Status LastModified by Organization Details LastModified Time None Recorded Advance Directives Directive None Recorded Payers Insurance Date Sequence Insurance Name Policy Number Policy Alfred Covered Member ID Alfred Member ID Guarantor Name 04/19/2018 SIMEON Navas
--- OUTSIDE RECORDS SUMMARY | 2025-05-28 15:26 | XMS_ITS | Clinical Summary ---
Author Organization [facility] Address [address] [place] [address] Care Team Providers Care Ethyl Blender Name Role Phone Sherwin Crews MD Primary Care Provider [phone] Allergies Active Allergy Reactions Criticality Noted Date Comments Shellfish Allergy Unknown - Patient states they do not know rxn details Low 12/25/2019 Shrimp (Diagnostic) Swelling High 07/17/2019 SWELLING OF FACE AND THROAT SWELLING OF FACE AND THROAT Medications lancets (OneTouch Delica Lancets 33G) [facility] 6 Active Cyanocobalamin (VITAMIN B 12 PO) Take 1 tablet by mouth 1 (one) time each day. Active aspirin 81 MG EC tablet 5 Active celecoxib (CeleBREX) 200 MG capsule celecoxib 200 mg capsule 5 Active cholecalciferol (Vitamin D-3) 25 MCG (1000 UT) tablet Take 1 tablet (1,000 Units) by mouth 1 (one) time each day. Active ezetimibe (Zetia) 10 MG tablet ezetimibe 10 mg tablet 5 Active famotidine (Pepcid) 20 MG tablet 1 Active Procto-Med HC 2.5 % rectal cream 1 Active Ibuprofen 200 MG capsule 1 capsule. Active levocetirizine (Xyzal) 5 MG tablet 1 Active losartan (Cozaar) 100 MG tablet losartan 100 mg tablet 5 Active metFORMIN XR (Glucophage-XR) 500 MG 24 hr tablet metformin ER 500 mg tablet,extende d release 24 hr 0 Active omega-3 (Fish Oil) 1000 MG capsule Take by mouth 1 (one) time each day. Active famotidine (Pepcid) 10 MG tablet Take by mouth. Activ e Rybelsus 14 MG tablet TAKE 1 TABLET BY MOUTH IN THE MORNING FOR DIABETES 3 Active tamsulosin (Flomax) 0.4 MG 24 hr capsule Take 1 capsule (0.4 mg) by mouth 1 (one) time each day with dinner. 90 capsule 3 4 Active clobetasol (Temovate) 0.05 % ointment Apply a thin layer to affected areas BID x 4 weeks, then take 2 week break. Can repeat cycle. 30 g 4 Active ferrous sulfate 324 (65 Fe) MG EC tablet Take 1 tablet (324 mg) by mouth 1 (one) time each day with breakfast. Do not crush, chew, or split. 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 Urethral stricture 03/27/2020 Lichen sclerosus of penis 01/09/2020 Lower urinary tract symptoms (LUTS) 01/09/2020 Erectile dysfunction 12/25/2019 Acute postoperative pain 07/20/2019 HTN (hypertension) 07/19/2019 FATEMEH on CPAP 07/19/2019 Plantar fasciitis, bilateral 07/24/2018 Left cervical radiculopathy 02/23/2018 Biceps tendinopathy 10/14/2015 DM (diabetes mellitus) 10/14/2015 Partial nontraumatic rupture of rotator cuff Sprain of rotator cuff capsule 09/16/2015 Neck pain 07/25/2015 Pain in joint, shoulder region 07/18/2015 Abdominal pain, left lower quadrant 05/29/2010 Immunizations Immunization Administration Dates Next Due Hep A / Hep B 12/04/2020, 9,11/06/2018,2017 Influenza, injectable, quadr ivalent, preservative free 08/19/2023,08/12/2020,10/01/2019,2017,08/03/2017 Zoster, Recombinant 08/12/2020,10/01/2019 Family History Medical History Relation Name Comments Hypertension Father Diabetes type II Maternal Grandmother Hypertension Mother Diabetes type II Other Relation Name Status Comments Father Maternal Grandmother Mother Other Social History Tobacco Use Types Packs/Day Years Used Date Smoking Tobacco: Former Smokeless Tobacco: Never Tobacco Cessation:Counseling Given: Not Answered Alcohol Use Standard Drinks/Week Comments Yes 0 (1 standard drink = 0.6 oz pur e alcohol) PHQ-2 Answer Date Recorded Patient Health Questionnaire-2 Score 0 11/29/2024 PHQ-9 Answer Date Recorded Patient Health Questionnaire-9 Score 0 11/29/2024 Sex and Gender Information Value Date Recorded Sex Assigned at Not on file Legal Sex Male 7:38 PM EDT Gender Identity Not on file Sexual Orientation Not on file Last Filed Vital Signs Vital Sign Reading Time Taken Comments Blood Pressure 120/81 11/29/2024 11:13 AM EST Pulse 78 11/29/2024 11:13 AM EST Temperature 36.9 C (98.4 F) 11/29/2024 11:13 AM EST Respiratory Rate 18 11/29/2024 11:13 AM EST Oxygen Saturation 95% 11/29/2024 11:13 AM EST Inhaled Oxygen Concentration - - Weight 115 kg (253 lb 1.4 oz) 11/29/2024 11:13 A M EST Height 175.3 cm (5' 9.02 ) 11/29/2024 11:[address] Body Mass Index 37.36 11/29/2024 11:13 AM EST Plan of Treatment Upcoming Encounters Date Type Department Care Team (Late st Contact Info) Description 12/05/2025 10:50 AM EST Office Visit [facility] [address] [place] [address] Gabby Acuna, WEB CONTENT EXECUTIVE, DNP [address] [place] [address] Health Maintenance Due Date Last Done Comments [facility]-Hepatitis C Screening 1960 [facility]-Medicare Annual Wellness (AWV) 1960 [facility]-/Child/Adol SDOH Screenings 1960 Diabetes: Dental Exam 1970 [facility]- SDOH Screenings 1978 [facility]-Adult SDOH Screenings 1978 [facility]-DTaP,Tdap,and Td Vaccines (1 - Tdap) 1979 CT Colonography 2005 Colonoscopy 2005 FIT-DNA 2005 FIT 2005 FOBT 2005 Sigmoidoscopy 2005 [facility]-Colorectal Cancer Screening 2005 [facility]-Diabetes: Hemoglobin A1C 07/20/2021 01/20/2021, 07/20/2019 [facility]-HCVEI-12 Vaccine (3 - season) 2024 09/23/2021, 01/07/2021 [facility]-Abdominal Aortic Aneurysm (AAA) Screening 2025 [facility]-Influenza Vaccine (#1) 07/01/202511/16, 08/19/2023, 08/12/2020, Additional history exists [facility]-Depression Screening 11/29/2025 11/29/2024, 11/02 [facility]-RSV Vaccine: 60+ Years or (1 - 1-dose 75+ series) 2035 [facility]-Zoster Vaccines Completed 08/12/2020, 9 [facility]-Hepatitis A Vaccines Aged Out 021, 04/30/2019, 11/06/2018, Additional history exists No longer eligible based on patient's age to complete this topic [facility]-Obesity Intervention Completed 11/30/2023, 11/01 [facility]-Pneumococcal Vaccine: 50+ Years Completed 11/16/2024 HPV Vaccines Aged Out No longer eligi ble based on patient's age to complete this topic [facility]-HIB Vaccines Aged Out No longer e ligible based on patient's age to complete this topic [facility]-IPV Vaccines Aged Out No longer e ligible based on patient's age to complete this topic [facility]-Rotavirus Vaccines Aged Out No lo nger eligible based on patient's age to complete this topic Procedures Procedure Name Priority Date/Time Associated Diagnosis Comments HEMOGLOBIN A1C Routine 01/20/2021 1:14 PM EDT from Last 3 Months or Most Recently Relevant to Health Maintenance Results * Hemoglobin A1c (01/20/2021 1:14 PM EDT) Hemoglobin A1c Interfering Hemoglobin variant detected, unable to report HbA1c. Consider 4.7 - 6.0 % [facility] Comment: alternative testing for diagnosis of diabetes mellitus like fasting blood glucose or oral glucose tolerance testing. Consider fructosamine for monitoring of diabetes mellitus. Glycohemoglobin Reference Range, 0 years and up: 4.7 to 6.0% . HA1C Interpretive Data: Diagnosis of Diabetes: Diabetic > or = 6.5% Pre-diabetic 5.7 to 6.4% Non-diabetic < or = 5.6% . Glycemic Targets for Type I and Type II Diabetics: Non- Adults <7.0% Adults <6.0% Children and Adolescents <7.5% . Source: [place] [employer]. Standards of medical care in diabetes, 2017. Diabetes Care.2017:40 (suppl 1):S1-S135. . HbA1c assay performed by an ion-exchange chromatography method that is certified traceable to the DCCT. 01/20/2021 1:14 PM EDT 01/20/2021 1:58 PM EDT us Domonique Taveras MD LAB BLOOD ORDERABLES Final Re sult SUNQUEST from Last 3 Months or Most Recently Relevant to Health Maintenance [place] [address] MEDICARE Care Teams Ethyl Blender Relationship Specialty Start Date End Date Sherwin Crews MD [address] [place] [address] [address] [place] [address] PCP - General 03/13/21
--- OUTSIDE RECORDS SUMMARY | 2025-05-28 15:26 | XMS_ITS | Clinical Summary ---
Author Organization [facility] Address [address] [place] [id number] Phone [email or web address] Care Team Providers Care Fuselage Framer Name Role Phone Sherwin Crews Primary Care Provider Unavailabl e Allergies Active Allergy Reactions Criticality Noted Date Comments Shrimp Extract Swelling High 07/17/2019 SWELLING OF FACE AND THROAT Medications celecoxib (CeleBREX) 200 MG capsule 03/18/2018 Active ezetimibe (ZETIA) 10 MG tablet 05/09/2018 Active levocetirizine (XYZAL) 5 MG tablet 05/09/2018 Active losartan (COZAAR) 100 MG tablet 04/07/2018 Active omega-3 acid ethyl esters (LOVAZA) 1 g capsule 05/04/2018 Active aspirin 81 MG tablet Take 81 mg by mouth 1 (one) time each day. Active ONETOUCH VERIO test strip 08/10/2018 Active Ibuprofen 200 MG capsule 1 capsule every 6 hours. Active ONETOUCH DELICA LANCETS 33G misc 08/18/2018 Active famotidine (PEPCID) 20 MG tablet 03/17/2020 Active metFORMIN XR (GLUCOPHATE-XR) 500 MG 24 hr tablet 03/17/2020 Active JANUMET XR 100-1000 MG tablet sustained-relea se 24 hour 01/22/2020 Active tamsulosin (FLOMAX) 0.4 MG 24 hr capsule 12/25/2019 Activ e Active Problems Problem Noted Date Diagnosed Date Plantar fasciitis, bilateral 07/24/2018 Sprain of rotator cuff capsule 09/16/2015 Overview (03/29/2018): Sprain and strain of other s pecified sites of shoulder and upper arm 09/16/2015 Overview (03/29/2018): Encounter for other specified aftercare 09/16/20 15 Overview (03/29/2018): Cervicalgia 07/25/2015 Overview (03/29/2018): Sprain of back 07/18/2015 Overview (03/29/2018): Pain in joint, shoulder region 07/18/2015 Overview (03/29/2018): Routine general medical exam ination at a health care facility 06/26/2010 Overview (03/29/2018): Abdominal pain, left lower quadrant 05/29/2010 Overview (03/29/2018): General medical examination 06/04/2008 Overview (03/29/2018): Health examination of defined subpopulation 05/02 Overview (03/29/2018): Other examination of ears and hearing 04/16/2008 Overview (03/29/2018): Social History Tobacco Use Types Packs/Day Years Used Date Smoking Tobacco: Former Smokeless Tobacco: Never Alcohol Use Standard Drinks/Week Comments Yes 0 (1 standard drink = 0.6 oz pur e alcohol) socially Intimate Partner Violence Answer Date R ecorded Insults You Not on file 02/11/2021 Threatens You Not on file 02/11/2021 Screams at You Not on file 02/11/2021 Physically Hurt Not on file 02/11/2021 Intimate Partner Violence Score Not on file 02/11/2021 Alcohol Use Answer Date Recorded Alcohol Use Status Yes 02/11/2021 Depression Answer Date Recorded PHQ-9 Total Score 0 06/04/2020 Stress Answer Date Recorded Stress in your Life Not on file 09/02/2024 Dealing with Stress 3 09/02/2024 Sex and Gender Information Value Date Recorded Sex Assigned at Not on file Legal Sex Male 10:16 AM CDT Gender Identity Not on file Sexual Orientation Not on file Last Filed Vital Signs Vital Sign Reading Time Taken Comments Blood Pressure 118/80 06/04/2020 2:36 PM EDT Pulse 76 06/04/2020 2:36 PM EDT Temperature 36.3 C (97.4 F) 03/18/2020 3:48 PM EDT Respiratory Rate 14 06/04/2020 2:36 PM EDT Oxygen Saturation 97% 06/04/2020 2:36 PM EDT Inhaled Oxygen Concentration - - Weight 127 kg (279 lb 9.6 oz) 03/18/2020 3:48 PM EDT Height 175 cm (5' 8.9 ) 03/18/2020 3:48 PM EDT Body Mass Index 41.41 03/18/2020 3:48 PM EDT Plan of Treatment Health Maintenance Due Date Last Done Comments Dental Cleaning/Exam 1960 HIV Screening 1960 Hepatitis C Screening 1960 Annual Preventive Exam 1978 Hep B Infection Screening - Triple Screen 1978 Tetanus Diphtheria and Pertu ssis Immunization (1 - Tdap) 1979 Colorectal Cancer Screening 1990 Pneumococcal: 65+ Years (1 o f 1 - PCV) 2010 Zoster Immunization (1 of 2) 2010 Covid-19 Immunization (1 - 2 024-25 season) 2024 Influenza Immunization (#1) 2025 HIB Immunization Aged Out No longer e ligible based on patient's age to complete this topic HPV Immunization Aged Out No longer e ligible based on patient's age to complete this topic Hepatitis A Immunization Aged Out No longer eligible based on patient's age to complete this topic Hepatitis B Immunization Aged Out No longer eligible based on patient's age to complete this topic Polio Immunization Aged Out No longer eligible based on patient's age to complete this topic Insurance [place] [address] Care Teams Fuselage Framer Relationship Specialty [place] [address] PCP - General 03/18/20
--- OUTSIDE RECORDS SUMMARY | 2025-05-28 15:26 | XMS_ITS | Data Portability ---
Author Organization [facility] [place] Address [address] [place] [address] Assessment No assessment recorded. Plan of Treatment Reminders Order Date Submit Date Provider Last Modified By Organization Details Last Modified Time Details Appointments None record ed. Lab None record ed. Referral None record ed. Procedures None record ed. Surgeries None record ed. Imaging None record ed. Medication Orders None record ed. Patient TargetsNo targets recorded. Patient InstructionsNo instructions recorded. Reason for Referral None Reported. Medical Equipment None Reported. Vitals None Recorded Social History None recorded. Functional Status None recorded. Mental Status None recorded. Family History Nothing Reported. Medical History No medical history recorded. Past Encounters Encounter ID Performer Location Encounter Start Date Encounter Closed Date Diagnosis/Indication Diagnosis SNOMED-CT Code Diagnosis ICD10 Code Diagnosis Note [id number] TEHAN RAMIREZ MD [facility] CLOSED [address] [place] [address] 06/21/2018 09:33:02 06/23/2018 16:00:10 [id number] ETHAN RAMIREZ MD [place] [id number] 1 12/11/2018 10:22:49 12/13/2018 15:48:26 [id number] ETHAN RAMIREZ MD [place] [address] [place] [address] 03/25/2020 10:58:17 03/26/2020 15:50:48 Health Concerns Section Related Observation LastModified by Organization Detai ls LastModified Time None Recorded Concern Status LastModified by Organization Details LastModified Time None Recorded Advance Directives Directive None Recorded Payers Insurance Date Sequence Insurance Name Policy Number Policy Alfred Covered Member ID Alfred Member ID Guarantor Name 06/21/2018 [facility] R[facility]K [facility] (BA) Grey Navas [id number] Grey Navas 12/11/2018 [facility] (BA) Grey Navas & & 0 Grey Navas 09/24/2020 1 [facility]: ACCESS BLUE [id number] Grey Navas [id number] Grey Navas
--- OUTSIDE RECORDS SUMMARY | 2025-05-28 15:26 | XMS_ITS | Data Portability ---
Author Organization [facility] [place] [facility] Address [address] [place] [address] Assessment No assessment recorded. Plan of Treatment [...] Referral None Reported. Medical Equipment None Reported. Medications Name Sig Start Date Stop Date Status Note LastModified by Organization Details LastModified Time celecoxib 200 mg capsule active Not Available Not Available Not Available metformin 500 mg tablet active Not Available Not Available Not Available famotidine 20 mg tablet active Not Available Not Available Not Available tamsulosin 0.4 mg capsule active Not Available Not Available N ot Available Proctozone-HC 2.5 % topical cream perineal applicator active Not Available Not Available N ot Available oseltamivir 75 mg capsule active Not Available Not Available N ot Available clobetasol 0.05 % topical ointment active Not Available Not Available Not Available losartan 100 mg tablet active Not Available Not Available Not Available metformin ER 500 mg tablet,extended release 24 hr active Not Available Not Availabl e Not Available ezetimibe 10 mg tablet active Not Available Not Available Not Available omega-3 acid ethyl esters 1 gram capsule active Not Available Not Available Not Available Twinrix (PF) 720 ROSANGELA unit-20 mcg/mL intramuscular syringe active Not Available Not Available Not Available levocetirizine 5 mg tablet active Not Available Not Available No t Available OneTouch Verio test strips active Not Available Not Available Not Available Janumet XR 100 mg-1,000 mg tablet,extended release active Not Available Not Available Not Available OneTouch Verio Meter active Not Available Not Available Not Available Fluarix Quad (PF) 60 mcg (15 mcg x 4)/0.5 mL IM syringe active Not Available Not Available Not Available Shingrix (PF) 50 mcg/0.5 mL intramuscular suspension, kit active Not Available Not Availa ble Not Available Fluarix Quad (PF) 60 mcg (15 mcg x 4)/0.5 mL IM syringe active Not Available Not Available Not Available OneTouch Delica Plus Lancet 33 gauge active Not Available Not Available Not Available Fluzone Quad (PF) 60 mcg (15 mcg x 4)/0.5 mL IM syringe active Not Available Not Available Not Available Vitals None Recorded Social History None recorded. Functional Status None recorded. Mental Status None recorded. Family History Nothing Reported. Medical History No medical history recorded. Past Encounters Encounter ID Performer Location Encounter Start Date Encounter Closed Date Diagnosis/Indication Diagnosis SNOMED-CT Code Diagnosis ICD10 Code Diagnosis Note [id number] ETHAN RAMIREZ MD [facility] [address] [place] [id number] 0 06/21/2018 09:33:02 06/23/2018 16:00:10 [id number] ETHAN RAMIREZ MD [place] [address] [place] [address] 1 12/11/2018 10:22:49 12/13/2018 15:48:26 [id number] ETHNA RAMIREZ [place] [address] [place] [address] 1 03/25/2020 10:58:17 03/26/2020 15:50:48 Health Concerns Section Related Observation LastModified by Organization Detai ls LastModified Time None Recorded Concern Status LastModified by Organization Details LastModified Time None Recorded Advance Directives Directive None Recorded Payers Insurance Date Sequence Insurance Name Policy Number Policy Alfred Covered Member ID Alfred Member ID Guarantor Name 06/21/2018 [facility] [employer] (BA) Grey Navas [id number] Grey Navas 12/11/2018 LUL (BA) Grey Navas & 9 & 0 Grey Navas 09/24/2020 1 [facility] [id number] Grey Navas [id number] Grey Navas
--- OUTSIDE RECORDS SUMMARY | 2025-05-28 15:26 | XMS_ITS | Clinical Summary ---
Author Organization [facility] Address [address] [place] [address] Care Team Providers Care Enforcement Safety Officer Name Role Phone Sherwin Crews MD Primary Care Provider [phone] Allergies Active Allergy Reactions Criticality Noted Date Comments Shrimp Swelling High 07/17/2019 SWELLING OF FACE AND THROAT Medications acetaminophen (TYLENOL) 650 MG 8 hr tablet Take 650 mg by mouth Every 8 (Eight) Hours As Needed for Mild Pain . Active ezetimibe (ZETIA) 10 MG tablet Take 10 mg by mouth Daily. Active Hague-3 1000 MG capsule Take by mouth Daily. Active losartan (COZAAR) 50 MG tablet Take 100 mg by mouth Daily. Active levocetirizine (XYZAL) 5 MG tablet Take 5 mg by mouth Every Evening. Active metFORMIN (GLUCOPHAGE) 1000 MG tablet Take 2,000 mg by mouth 2 (Two) Times a Day With Meals. Active raNITIdine (ZANTAC) 150 MG tablet Take 150 mg by mouth 2 (Two) Times a Day. Active cholecalciferol (VITAMIN D3) 1000 units tablet Take 1,000 Units by mouth Daily. Active SUPER B COMPLEX/C capsule Take 1 tablet by mouth Daily. Active aspirin 81 MG EC tablet Take 81 mg by mouth Daily. HELD STARTING 07-08-19 INSTRUCTED FOR SURGERY Active HYDROcodone-sarina taminophen (NORCO) 10-325 MG per tablet Take 1 tablet by mouth Every 6 (Six) Hours As Needed for Moderate Pain . 45 tablet 9 Active docusate sodium (COLACE) 100 MG capsule Take 1 capsule by mouth 2 (Two) Times a Day. 60 capsule 9 Active Active Problems Problem Noted Date Diagnosed Date Acute postoperative pain 07/20/2019 Neck pain 07/19/2019 S/P cervical spinal fusion 07/19/2019 FATEMEH on CPAP 07/19/2019 HTN (hypertension) 07/19/2019 DM (diabetes mellitus) 07/19/2019 Social History Tobacco Use Types Packs/Day Years Used Date Smoking Tobacco: Former Smokeless Tobacco: Never Comments:24 YEARS AGO QUIT Alcohol Use Standard Drinks/Week Comments Yes 0 (1 standard drink = 0.6 oz pur e alcohol) OCCASIONAL SOCIAL USE AUDIT-C Answer Date Recorded Frequency of Alcohol Consumption Never 07/17/2019 Average Number of Drinks Not on file 019 Frequency of Binge Drinking Not on file 07/01 Abuse Screen Answer Date Recorded Unsafe at Home or Work/School Not on file Feels Threatened by Someone? Not on file 09/2023 Does Anyone Keep You from Co ntacting Others or Doint Things Outside the Home? Not on file 08/11/2023 Physical Sign of Abuse Present Not on file 1 Housing Stability Answer Date Recorded Current Living Arrangements Not on file 07/31 Potentially Unsafe Housing Conditions Not on tyrese e 08/11/2023 Family and Community Support Answer Ricardo e Recorded Help with Day-to-Day Activities Not on file 08/11/2023 Lonely or Isolated Not on file 08/11/2023 Employment Answer Date Recorded Do you want help finding or keeping work or a akua b? Not on file 08/11/2023 Disabilities Answer Date Recorded Concentrating, Remembering, or Making Decisions Difficulty Not on file 08/11/2023 Doing Errands Independently Difficulty Not on fi le 08/11/2023 Education Answer Date Recorded Help with school or training? Not on file Preferred Language Not on file 08/11/2023 Sex and Gender Information Value Date Recorded Sex Assigned at Not on file Legal Sex Male 8:18 AM EDT Gender Identity Not on file Sexual Orientation Not on file Last Filed Vital Signs Vital Sign Reading Time Taken Comments Blood Pressure 116/72 07/20/2019 11:16 AM EDT Pulse 65 07/20/2019 11:16 AM EDT Temperature 36.5 C (97.7 F) 07/20/2019 11:16 AM EDT Respiratory Rate 18 07/20/2019 11:16 AM EDT Oxygen Saturation 94% 07/20/2019 11:16 AM EDT Inhaled Oxygen Concentration - - Weight 130 kg (285 lb 15 oz) 07/17/2019 11:32 AM EDT Height 175.3 cm (5' 9 ) 07/17/2019 11:32 AM EDT Body Mass Index 42.23 07/17/2019 11:32 AM EDT Plan of Treatment Health Maintenance Due Date Last Done Comments TDAP/TD VACCINES (1 - Tdap) 1979 COLOGUARD 2005 COLON CANCER SCREENING 5 YEA R SIGMOIDOSCOPY 2005 COLONOSCOPY [address] CANCER SCREENING 2005 CT COLONOGRAPHY 2005 FECAL OCCULT BLOOD TEST 2005 FIT Testing (1 year) 2005 Pneumococcal Vaccine 50+ (1 of 1 - PCV) 2010 ANNUAL PHYSICAL 07/17/2019 HEPATITIS C SCREENING 07/17/2019 COVID-19 Vaccine () 07/01/2024 AAA SCREEN ONCE 2025 INFLUENZA VACCINE 07/31/2025 08/12/2020 HEMOGLOBIN A1C Discontinued 07/20/2019 ZOSTER VACCINE Completed 08/12/2020, 10/01/2019 Medical Devices Implanted Type Area Blender / Cook Device Identifier Shelf Expiration Date Model / Serial / Lot Allogrft Bone Vivigen Celluar Matrx Formable 1cc - [id number] Implanted:Qty : 1 on 07/19/2019 by Conrad Curry MD at [facility] Implant N/A: Spine Cervical [facility] 06/05/2020 [id number] / / Cage [place]/Lg 7d 6mm - [id number] Implanted:Qty : 1 on 07/19/2019 by Conrad Curry MD at [facility] Implant N/A: Spine Cervical DEPUY SPINE [id number] / / Cage Bengal/Lg 7d 7mm - [id number] Implanted:Qty : 1 on 07/19/2019 by Conrad Curry MD at [facility] Implant N/A: Spine Cervical DEPUY SPINE [id number] / / Plt [place] 2lvl 36mm - [id number] Implanted:Qty : 1 on 07/19/2019 by Conrad Curry MD at [facility] Implant N/A: Spine Cervical DEPUY SPINE [id number] / / Scrw [place] Cait Sd 16mm - [id number] Implanted:Qty : 4 on 07/19/2019 by Conrad Curry MD at [facility] Implant N/A: Spine Cervical DEPUY SPINE [id number] / / Scrw [place] Cait Sd 15mm - [id number] Implanted:Qty : 2 on 07/19/2019 by Conrad Curry MD at [facility] Implant N/A: Spine Cervical DEPUY SPINE [id number] / / Procedures Procedure Name Priority Date/Time Associated Diagnosis Comments HEMOGLOBIN A1C Routine 07/20/2019 7:13 AM EDT from Last 3 Months or Most Recently Relevant to Health Maintenance Results * (ABNORMAL) Hemoglobin A1c (07/20/2019 7:13 AM EDT) Hemoglobin A1C 8.40(H) 4.80 - 5.60 % 07/20/2019 9:25 AM EDT [facility] Blood Venipuncture / Unknown 07/20/2019 7:13 AM EDT 07/20/2019 8:24 AM EDT Narrative [facility] - 07/20/2019 9:25 AM EDT Hemoglobin A1C Ranges: Increased Risk for Diabetes 5.7% to 6.4% Diabetes >= 6.5% Diabetic Goal < 7.0% [facility]OD ORDER[facility] Final Result [facility]
[address] [place] [address], from Last 3 Months or Most Recently Relevant to Health Maintenance Advance Directives * CPR (Attempt to Resuscitate) (Latest Code Status on File) Date Activated Date Inactivated Comments 07/19/2019 12:44 PM 07/20/2019 3:46 PM Question Answer Comments Code Status (Patient has no pulse and is not breathing): CPR (Attempt to Resuscitate) Medical Interventions (Patie nt has pulse or is breathing): Full Level Of Support Discussed With: Patient Care Teams Enforcement Safety Officer Relationship Specialty Start Date End Date Sherwin Crews MD [address] [facility] [address] [facility] [address] [place] [address] PCP - General Internal Medicine 07/17/19
--- OUTSIDE RECORDS SUMMARY | 2025-05-28 15:26 | XMS_ITS | Encounter Summary ---
Author Organization [facility] Address [address] [place] [address] Phone [email or web address] Care Team Providers Care Gradall Operator Name Role Phone Sherwin Crews Primary Care Provider Unavailabl e Encounter Details Date Type Department Care Team (Late st Contact Info) Description 09/04/2018 Ancillary Orders [place] [address] [facility] [address] [place] [address] Mónica Craig PA [address] [place] [address] Plantar fasciitis, bilateral Social History Tobacco Use Types Packs/Day Years Used Date Smoking Tobacco: Never Smokeless Tobacco: Never Alcohol Use Standard Drinks/Week Comments Yes 0 (1 standard drink = 0.6 oz pur e alcohol) socially Sex and Gender Information Value Date Recorded Sex Assigned at Not on file Legal Sex Male 10:16 AM CDT Gender Identity Not on file Sexual Orientation Not on file documented as of this encounter Plan of Treatment Not on file documented as of this encounter Visit Diagnoses Diagnosis Plantar fasciitis, bilateral documented in this encounter Care Teams Gradall Operator Relationship Specialty [place] [address] PCP - General 03/18/20 documented as of this encounter
--- OUTSIDE RECORDS SUMMARY | 2025-05-28 15:26 | XMS_ITS | Encounter Summary ---
Author Organization [facility] Address [address] [place] [address] Care Team Providers Care Waste Baler Name Role Phone Sherwin Crews MD Primary Care Provider [phone] Reason for Visit * Reason Comments Med Refill Encounter Details Date Type Department Care Team (Late Contact Info) Description 09/16/2021 Refill [facility] Urology [address] [place] [address] Gabby Acuna, LITO, DNP [address] [address] Social History Tobacco Use Types Packs/Day Years Used Date Smoking Tobacco: Former Alcohol Use Standard Drinks/Week Comments Yes 0 (1 standard drink = 0.6 oz pur e alcohol) Sex and Gender Information Value Date Recorded Sex Assigned at Not on file Legal Sex Male 7:38 PM EDT Gender Identity Not on file Sexual Orientation Not on file documented as of this encounter Plan of Treatment Upcoming Encounters Date Type Department Care Team (Late Contact Info) Description 12/05/2025 10:50 AM EST Office Visit [facility] Urology [address] [place] [address] Gabby Acuna, LITO, DNP [address] [id number] [place] [address] documented as of this encounter Visit Diagnoses Not on filedocumented in this encounter Care Teams Waste Baler Relationship Specialty Start Date End Date Sherwin Crews MD [address] [facility] [address] [place] [address] PCP - General 03/13/21 documented as of this encounter
== END 2025-05-27 23:59 | disposition home or self-care (01) ==
LOC: LAB.DROPOF 05-28 15:24
PROVIDERS: PCP Internal Medicine; Visit Provider Internal Medicine
DX: E78.5 Hyperlipidemia, unspecified (principal); E11.9 Type 2 diabetes mellitus without complications; I10 Essential (primary) hypertension
CPT/HCPCS: 80053; 80061; 83036